=== PATIENT | male | born 1940 | race Caucasian/White ===

== ENCOUNTER 2020-11-18 00:45 | Inpatient (IN) | payer MEDICARE, BC ==
[~2020-11-18] VITALS: Ht 177.8 cm; Wt 128.1 kg
[2020-11-18] VITALS (16 sets, daily range): BP systolic 125–183; BP diastolic 60–87
[2020-11-18] MEDS ORDERED: normal saline 1000ml 1,000 ML IV ONE (02:40)
[2020-11-18] MEDS ORDERED: ondansetron/PF 4mg/2ml inj IV ONE (02:40)
[2020-11-18] MEDS ORDERED: normal saline 1000ML IV soln IVB ONE (02:40)
--- NOTE | 2020-11-18 03:04 | NUR ---
patient had large amount of vomitus, mostly food and bile. Bed changed, patient cleaned, linen change.
[2020-11-18] MEDS: morphine 2 MG/ML inj. syringe IV PRN ×4 (03:09→17:42)
[2020-11-18 03:11] LABS: BASOPHILS % (AUTO) 0.1 % (0-1); EOSINOPHILS % (AUTO) 0.3 % (0-6); HEMATOCRIT 48.9 % (42.0-52.0); HEMOGLOBIN 16.4 g/dl (14.0-17.9); LYMPHOCYTES % (AUTO) 8.4 % (21-51); MEAN CORPUSCULAR HEMOGLOBIN 30.8 PG (27.0-31.0); MEAN CORPUSCULAR HGB CONC 33.5 g/dL (33.0-36.5); MEAN CORPUSCULAR VOLUME 91.9 FL (78-98); MEAN PLATELET VOLUME 6.9 FL (7.4-10.4); MONOCYTES # (AUTO) 0.5 X10'3 (0-0.9); MONOCYTES % (AUTO) 3.9 % (2-12); NEUTROPHILS # (AUTO) 10.7 X10'3 (1.8-7.7); NEUTROPHILS % (AUTO) 87.3 % (42-75); PLATELET COUNT 294 X10'3 (140-440); RED BLOOD COUNT 5.33 X10'6 (4.70-6.10); RED CELL DISTRIBUTION WIDTH 13.3 % (11.5-14.5); WHITE BLOOD COUNT 12.3 X10'3 (4.5-11.0)
[2020-11-18 03:26] LABS: ALANINE AMINOTRANSFERASE 47 U/L (12-78); ALBUMIN 4.2 G/DL (3.4-5.0); ALKALINE PHOSPHATASE 138 IU/L (46-116); ANION GAP 12 (8-16); ASPARTATE AMINO TRANSFERASE 34 U/L (10-37); BILIRUBIN,TOTAL 0.8 MG/DL (0.1-1.0); BLOOD UREA NITROGEN 30 MG/DL (7-18); BUN/CREATININE RATIO 30.3 (5.4-32.0); CALCIUM 9.9 MG/DL (8.5-10.1); CHLORIDE 99 MMOL/L (99-107); CREATININE 0.99 MG/DL (0.60-1.10); GLUCOSE 154 MG/DL (70-104); POTASSIUM 3.5 MMOL/L (3.5-5.1); SODIUM 139 MMOL/L (135-145); TOTAL CARBON DIOXIDE 28.1 MMOL/L (24-32); TOTAL PROTEIN 8.5 G/DL (6.4-8.2); eGFR 73 ML/MIN
[2020-11-18 03:32] LABS: LIPASE 348 U/L (73-393); MAGNESIUM 2.2 MG/DL (1.5-2.4)
[2020-11-18] MEDS ORDERED: iohexol 300mg/ml 100ml inj. ONE (03:34)
[2020-11-18] MEDS ORDERED: acetaminophen 650mg rectal suppository RC PRN (07:20)
[2020-11-18] MEDS ORDERED: ondansetron/PF 4mg/2ml inj IV PRN ×2 (07:20→11:10)
[2020-11-18] MEDS ORDERED: normal saline 1000ml 1,000 ML IV SCH (07:20)
[2020-11-18] MEDS ORDERED: potassium Cl 40MEQ/1/2NS 520ml 520 ML IV PRN ×2 (07:20)
[2020-11-18] MEDS ORDERED: morphine 2 MG/ML inj. syringe IV PRN ×2 (07:20→11:10)
[2020-11-18] MEDS ORDERED: magnesium 2GM in 50ml NS 50 ML IV PRN ×2 (07:20→16:10)
[2020-11-18] MEDS ORDERED: potassium Cl 20 mEq SR tablet PO PRN ×4 (07:20→16:10)
[2020-11-18] MEDS ORDERED: magnesium 4gm in 100ml NS 100 ML IV PRN ×2 (07:20→16:10)
--- NOTE | 2020-11-18 07:41 | NUR ---
saman brandt changed. 700ml brown liquid out
[2020-11-18] MEDS: K and/or MAG REPLACEMENT MC SCH ×2 (08:00→20:00)
--- NOTE | 2020-11-18 08:32 | NUR ---
ANA DAUGHTER [phone] LEONCIO [phone],
[2020-11-18] MEDS ORDERED: meperidine/PF 25mg/ml syringe IV PRN ×3 (11:10)
[2020-11-18] MEDS ORDERED: hydrALAZINE 20mg/ml inj. IV PRN (11:10)
[2020-11-18] MEDS ORDERED: proCHLORperazine 10 MG/2 ml inj IV PRN (11:10)
[2020-11-18] MEDS ORDERED: ringers solution, lacted 1,000 ML IV SCH (11:10)
[2020-11-18] MEDS ORDERED: labetalol 20mg/4ml (5mg/ml) syringe IV PRN (11:10)
[2020-11-18] MEDS ORDERED: acetaminophen 1,000mg/100ml IV 100 ML IV PRN (11:10)
[2020-11-18] MEDS ORDERED: morphine 4 MG/ML inj SYRINge IV PRN ×2 (11:10→16:10)
[2020-11-18] MEDS ORDERED: BUPIVACAINE liposomal/PF 13.3 MG/ML vial IM ONE (11:13)
[2020-11-18] MEDS ORDERED: BUPIVAcaine/PF 2.5mg/ml (0.25%) 10ml vial ONE (11:13)
[2020-11-18] MEDS ORDERED: famotidine/PF 10 mg/ml inj IV ONE (11:24)
[2020-11-18] MEDS ORDERED: NORepinephrine 8 MG in NS 250 ML BAG (32 mcg/ml) IV ONE (11:25)
[2020-11-18] MEDS ORDERED: sevoflurane 250ml liquid IH ONE (11:25)
[2020-11-18] MEDS ORDERED: fentaNYL /PF 50mcg/ml 5ml ampule ONE (11:40)
[2020-11-18] MEDS ORDERED: midazolam 1 mg/ML 2ml injection ONE (11:49)
[2020-11-18] MEDS ORDERED: 0.9 % SODIUM CHLORIDE 10 ML VIAL ONE ×2 (12:22→12:23)
[2020-11-18] MEDS ORDERED: phenylephrine 10mg/ml inj. ONE (12:22)
[2020-11-18] MEDS ORDERED: ePHEDrine 50MG/ML INJ. ONE (12:23)
[2020-11-18] MEDS ORDERED: LIDOcaine 2% (20mg/ml) 5ml vial ONE (12:23)
[2020-11-18] MEDS ORDERED: rocuronium 10mg/ml inj IV ONE (12:23)
[2020-11-18] MEDS ORDERED: propofol inj 20 ML IV ONE ×2 (12:23→12:43)
[2020-11-18] MEDS ORDERED: ceFOXitin 1000 MG inj ONE ×2 (12:26)
[2020-11-18] MEDS ORDERED: ondansetron/PF 4mg/2ml inj ONE (12:43)
[2020-11-18] MEDS ORDERED: dexamethasone sod phosphate 4mg/ml inj. ONE (12:43)
[2020-11-18] MEDS ORDERED: midazolam 1 mg/ML 2ml injection IV ONE (12:50)
[2020-11-18] MEDS ORDERED: fentaNYL/PF 50MCG/1 ML 2ML syringe IV PRN (12:50)
[2020-11-18] MEDS ORDERED: albumin (Human) 5% 250ml 250 ML IV ONE (13:11)
--- NOTE | 2020-11-18 13:25 | NUR ---
Received from OR via BED, accompanied by Anesthesiologist ISSAC and report given by Anesthesiolgist. PT IS SEDATED, HAS 8.O0 ETT. PLACED ON VENTILATOR. CXR DONE FOR TUBE AND LINE PLACEMENT. FENTANYL AND VERSED GTTS HUNG, WRIST RESTRAINTS IN PLACE. SCDS ON, FC PATENT. PT HAS MIDLINE ABD INC WITH ISLAND DSG, CDI. COLOSTOMY BAG LEFT ABD WITH SMALL AMOUNT OF STOOL. PT NODS AND SHAKES HEAD, FOLLOWS COMMANDS. PER DR ARELLANO, PT IS TO REST OVERNIGHT ON THE VENTILATOR. Addendum: 11/18/20 at 2124 by Geovanna Gonsalves RN NGT TO Enzo MOLINA, TO LOW WALL SX. SCANT OUITPUT IN TUBE
[2020-11-18] MEDS: FENTANYL-0.9 % NACL/PF 100 ML IV PRN ×2 (13:42→19:48)
[2020-11-18] MEDS: midazolam 100mg in NS 100ml 100 ML IV PRN (13:42)
[2020-11-18 14:03] LABS: ABG BASE EXCESS 4.5 mmol/L (-2.0-2.0); ABG HCO3 23.1 mmol/L (22.0-26.0); ABG OXYGEN SATURATION 98.9 % (94-97); ABG PCO2 (T) 21.2 mmHg (35.0-48.0); ABG PO2 (T) 120.8 mmHg (75.0-100.0); FCOHb 0.3 % (0.0-3.9); FMetHb 0.4 % (0.0-1.5); FO2Hb 98.2 % (94-97); PEEP 5 cm H2O; RESPIRATORY RATE 12 b/min; TIDAL VOLUME 650 mL
--- NOTE | 2020-11-18 14:30 | NUR ---
FENTANYL AT 100, VERSED AT 3/PT NOT EASILY SEDATED. CHEWING AND BITING ON ETT, REQUESTED BITE BLOCK FROM RT. VSS, HYPERTENSIVE. PT STABLE. REPORT GIVEN TO RECEIVING RN.
[2020-11-18] MEDS ORDERED: sodium phosphate inj. 30 MMOL in dextrose 5%-water 250 ML IV PRN (16:10)
[2020-11-18] MEDS: K, MAG and/or Phos replacement - Verify level? MC SCH (16:10)
[2020-11-18] MEDS ORDERED: magnesium Cl slow-release 64mg tablet PO PRN ×2 (16:10→16:35)
[2020-11-18] MEDS ORDERED: sodium phosphate inj. 15 MMOL in dextrose 5%-water 250 ML IV PRN (16:10)
[2020-11-18] MEDS ORDERED: acetaminophen 325mg tablet PO PRN ×2 (16:10)
[2020-11-18] MEDS ORDERED: albuterol 2.5 MG/3 ML nebule NEB PRN (16:10)
[2020-11-18] MEDS: pantoprazole 40 MG vial IV SCH (16:10)
[2020-11-18] MEDS: normal saline 1000ml 1,000 ML IV SCH (16:10)
[2020-11-18 17:28] LABS: BASOPHILS % (AUTO) 0.1 % (0-1); EOSINOPHILS % (AUTO) 0 % (0-6); HEMATOCRIT 44.6 % (42.0-52.0); HEMOGLOBIN 14.7 g/dl (14.0-17.9); LYMPHOCYTES # (AUTO) 0.5 X10'3 (1.1-4.8); LYMPHOCYTES % (AUTO) 2.6 % (21-51); MEAN CORPUSCULAR HEMOGLOBIN 30.6 PG (27.0-31.0); MEAN CORPUSCULAR VOLUME 92.8 FL (78-98); MEAN PLATELET VOLUME 6.8 FL (7.4-10.4); MONOCYTES # (AUTO) 0.9 X10'3 (0-0.9); MONOCYTES % (AUTO) 4.7 % (2-12); NEUTROPHILS # (AUTO) 17.8 X10'3 (1.8-7.7); NEUTROPHILS % (AUTO) 92.6 % (42-75); PLATELET COUNT 250 X10'3 (140-440); RED CELL DISTRIBUTION WIDTH 13.6 % (11.5-14.5); WHITE BLOOD COUNT 19.2 X10'3 (4.5-11.0)
[2020-11-18 17:41] LABS: PARTIAL THROMBOPLASTIN TIME 23 SECONDS (22-32)
[2020-11-18 17:43] LABS: ALANINE AMINOTRANSFERASE 37 U/L (12-78); ALBUMIN 3.5 G/DL (3.4-5.0); ALKALINE PHOSPHATASE 109 IU/L (46-116); ANION GAP 11 (8-16); ASPARTATE AMINO TRANSFERASE 32 U/L (10-37); BILIRUBIN,TOTAL 0.6 MG/DL (0.1-1.0); BLOOD UREA NITROGEN 24 MG/DL (7-18); BUN/CREATININE RATIO 27.3 (5.4-32.0); CALCIUM 8.4 MG/DL (8.5-10.1); CHLORIDE 107 MMOL/L (99-107); CREATININE 0.88 MG/DL (0.60-1.10); GLUCOSE 163 MG/DL (70-104); MAGNESIUM 2.1 MG/DL (1.5-2.4); PHOSPHORUS 3.4 MG/DL (2.3-4.5); SODIUM 144 MMOL/L (135-145); TOTAL CARBON DIOXIDE 26.3 MMOL/L (24-32); eGFR 84 ML/MIN
[2020-11-18 17:44] LABS: POTASSIUM 3.4 MMOL/L (3.5-5.1)
--- NOTE | 2020-11-18 19:39 | NUR ---
Dr. Savage called about lovenox, he said hold it until tomorrow.
[2020-11-18] MEDS ORDERED: enoxaparin 40mg/0.4ml syringe SQ SCH (20:00)
[2020-11-19] VITALS (24 sets, daily range): BP systolic 109–138; BP diastolic 52–74
[2020-11-19] MEDS: piperacillin/tazo 3.375gm/50ml 50 ML IV SCH ×3 (00:16→16:00)
[2020-11-19 02:41] LABS: PARTIAL THROMBOPLASTIN TIME 23 SECONDS (22-32)
[2020-11-19 02:44] LABS: ALANINE AMINOTRANSFERASE 31 U/L (12-78); ALBUMIN/GLOBULIN RATIO 0.9 (1.1-1.5); ALKALINE PHOSPHATASE 91 IU/L (46-116); ANION GAP 6 (8-16); ASPARTATE AMINO TRANSFERASE 26 U/L (10-37); BILIRUBIN,TOTAL 0.7 MG/DL (0.1-1.0); BLOOD UREA NITROGEN 22 MG/DL (7-18); BUN/CREATININE RATIO 26.5 (5.4-32.0); CHLORIDE 109 MMOL/L (99-107); CREATININE 0.83 MG/DL (0.60-1.10); GLUCOSE 137 MG/DL (70-104); PHOSPHORUS 3.5 MG/DL (2.3-4.5); POTASSIUM 4.2 MMOL/L (3.5-5.1); SODIUM 142 MMOL/L (135-145); TOTAL CARBON DIOXIDE 26.6 MMOL/L (24-32); TOTAL PROTEIN 6.2 G/DL (6.4-8.2); eGFR 90 ML/MIN
[2020-11-19] MEDS ORDERED: FLO0.4C PO (02:52)
[2020-11-19] MEDS ORDERED: BUSP10TA3 PO (02:52)
[2020-11-19] MEDS ORDERED: ARIP5TAB14 PO (02:52)
[2020-11-19] MEDS ORDERED: NORT75CA PO (02:52)
[2020-11-19] MEDS ORDERED: HYDR-3972 PO (02:52)
[2020-11-19] MEDS ORDERED: CITA20TA28 PO (02:52)
[2020-11-19] MEDS ORDERED: LISI40TA13 PO (02:52)
[2020-11-19 02:53] LABS: BASOPHILS % (AUTO) 0.1 % (0-1); EOSINOPHILS % (AUTO) 0 % (0-6); HEMATOCRIT 41.3 % (42.0-52.0); HEMOGLOBIN 13.4 g/dl (14.0-17.9); LYMPHOCYTES % (AUTO) 6.5 % (21-51); MEAN CORPUSCULAR HEMOGLOBIN 30.2 PG (27.0-31.0); MEAN CORPUSCULAR HGB CONC 32.4 g/dL (33.0-36.5); MONOCYTES % (AUTO) 6.5 % (2-12); NEUTROPHILS # (AUTO) 13.9 X10'3 (1.8-7.7); NEUTROPHILS % (AUTO) 86.9 % (42-75); PLATELET COUNT 235 X10'3 (140-440); RED BLOOD COUNT 4.44 X10'6 (4.70-6.10); RED CELL DISTRIBUTION WIDTH 13.7 % (11.5-14.5); WHITE BLOOD COUNT 16.1 X10'3 (4.5-11.0)
[2020-11-19] MEDS: midazolam 100mg in NS 100ml 100 ML IV PRN (03:11)
[2020-11-19] MEDS: FENTANYL-0.9 % NACL/PF 100 ML IV PRN (03:43)
[2020-11-19 03:57] LABS: ABG BASE EXCESS 0.3 mmol/L (-2.0-2.0); ABG HCO3 23.6 mmol/L (22.0-26.0); ABG OXYGEN SATURATION 98.7 % (94-97); ABG PCO2 (T) 34.2 mmHg (35.0-48.0); ABG PO2 (T) 129.7 mmHg (75.0-100.0); FCOHb 0.5 % (0.0-3.9); FMetHb 0.2 % (0.0-1.5); PATIENT TEMPERATURE 37.1; PEEP 5 cm H2O; RESPIRATORY RATE 12 b/min; TIDAL VOLUME 650 mL; TOTAL HEMOGLOBIN 14.1 G/dl (14.0-18.0)
[2020-11-19] MEDS: normal saline 1000ml 1,000 ML IV SCH ×2 (05:30→21:47)
[2020-11-19] MEDS: pantoprazole 40 MG vial IV SCH (07:55)
[2020-11-19] MEDS: K, MAG and/or Phos replacement - Verify level? MC SCH (07:59)
[2020-11-19] MEDS: K and/or MAG REPLACEMENT MC SCH (07:59)
[2020-11-19] MEDS ORDERED: enoxaparin 40mg/0.4ml syringe SUBCUT SCH (08:00)
[2020-11-19] MEDS: mineral oil/petrolatum ophthal oint EACHEYE SCH ×2 (14:00→20:00)
--- NOTE | 2020-11-19 14:24 | NUR ---
Initial: Pt admitted w/ increasing abd pain and distention, CT scan showed SBO per EMR; currently has a colostomy. Pt underwent laparotomy 11/18 and was intubated for the procedure, though was extubated this morning. Pt also had NGT for suctioning but this was also removed today. Per RN, pt currently NPO awaiting MD consult for diet advancement. LBM 11/18. Limited nutrition interventions at this time, Will continue to monitor. Recs: 1. When medically appropriate advance to regular diet 2. Bowel care per rx 3. Weekly wts Addendum: 11/19/20 at [address] Amended: Links added.
[2020-11-19] MEDS: lactobacillus rhamnosus 10,000 MMU CELLS/CAPSULE PO SCH (21:45)
[2020-11-19] MEDS: enoxaparin 40mg/0.4ml syringe SUBCUT SCH (21:45)
[2020-11-19] MEDS: ondansetron/PF 4mg/2ml inj IV PRN (22:04)
--- NOTE | 2020-11-20 01:02 | NUR ---
PATIENT HEART RATE JUMPED TO 130'S;PATIENT ASYMPTOMATIC FOR CHEST PAIN OR DIZZYNESS. STAT EKG PER PROTOCOL. WILL CALL MD [facility] RESULTS. PETTY HOFFMAN Addendum: 11/20/20 at 0146 by Lyric Zambrano RN lr fluid bolus 100 ml ordered, giving tylenol for elevated temp 100.2-will continue to monitor for ekgEKG?VS changes Petty
[2020-11-20 01:13] VITALS: BP 93/69
[2020-11-20] MEDS: ringers solution, lacted 1,000 ML IV SCH ×3 (01:45→03:42)
[2020-11-20] MEDS: mineral oil/petrolatum ophthal oint EACHEYE SCH ×4 (02:00→20:00)
[2020-11-20] MEDS ORDERED: diltiazem 5mg/ml 5ml inj. IV ONE (02:50)
--- NOTE | 2020-11-20 03:52 | NUR ---
BOLUS GIVEN, IV CARDIZEM XONE- PATIENT HR DROPPED TO 80'S, CONVERTED TO SR AT 0339-. PATIENT RHYTHM THEN CONVERTED TO FLUTTER, IRREGULAR AT 0337. CONTINUING TO MONITOR FOR EKG CHANGES. JORDON HOFFMAN
[2020-11-20 06:00] VITALS: BP 97/54
--- NOTE | 2020-11-20 06:05 | NUR ---
Patient in room PCU 3025. I have received report from SALMA HOFFMAN and had the opportunity to ask questions and assume patient care.
[2020-11-20 06:35] LABS: PARTIAL THROMBOPLASTIN TIME 25 SECONDS (22-32)
[2020-11-20] MEDS: normal saline 1000ml 1,000 ML IV SCH ×2 (06:45→08:10)
[2020-11-20 06:52] LABS: ALANINE AMINOTRANSFERASE 31 U/L (12-78); ALBUMIN 2.6 G/DL (3.4-5.0); ALBUMIN/GLOBULIN RATIO 0.8 (1.1-1.5); ALKALINE PHOSPHATASE 80 IU/L (46-116); ANION GAP 8 (8-16); ASPARTATE AMINO TRANSFERASE 30 U/L (10-37); BILIRUBIN,TOTAL 0.6 MG/DL (0.1-1.0); BLOOD UREA NITROGEN 20 MG/DL (7-18); BUN/CREATININE RATIO 24.1 (5.4-32.0); CALCIUM 7.7 MG/DL (8.5-10.1); CHLORIDE 110 MMOL/L (99-107); CREATININE 0.83 MG/DL (0.60-1.10); GLUCOSE 92 MG/DL (70-104); MAGNESIUM 1.9 MG/DL (1.5-2.4); PHOSPHORUS 2.6 MG/DL (2.3-4.5); POTASSIUM 3.8 MMOL/L (3.5-5.1); SODIUM 145 MMOL/L (135-145); TOTAL CARBON DIOXIDE 27.3 MMOL/L (24-32); TOTAL PROTEIN 5.7 G/DL (6.4-8.2); eGFR 90 ML/MIN
[2020-11-20 07:03] LABS: BASOPHILS % (AUTO) 0.3 % (0-1); EOSINOPHILS # (AUTO) 0.3 X10'3 (0-0.9); EOSINOPHILS % (AUTO) 3.2 % (0-6); HEMATOCRIT 36.9 % (42.0-52.0); HEMOGLOBIN 12.4 g/dl (14.0-17.9); LYMPHOCYTES # (AUTO) 1.7 X10'3 (1.1-4.8); LYMPHOCYTES % (AUTO) 16.9 % (21-51); MEAN CORPUSCULAR HEMOGLOBIN 31.2 PG (27.0-31.0); MEAN CORPUSCULAR HGB CONC 33.6 g/dL (33.0-36.5); MEAN CORPUSCULAR VOLUME 92.8 FL (78-98); MEAN PLATELET VOLUME 7.1 FL (7.4-10.4); MONOCYTES # (AUTO) 0.7 X10'3 (0-0.9); MONOCYTES % (AUTO) 6.6 % (2-12); NEUTROPHILS # (AUTO) 7.2 X10'3 (1.8-7.7); PLATELET COUNT 182 X10'3 (140-440); RED BLOOD COUNT 3.97 X10'6 (4.70-6.10); RED CELL DISTRIBUTION WIDTH 13.6 % (11.5-14.5); WHITE BLOOD COUNT 9.9 X10'3 (4.5-11.0)
[2020-11-20] MEDS: pantoprazole 40 MG vial IV SCH (07:47)
[2020-11-20] MEDS: lactobacillus rhamnosus 10,000 MMU CELLS/CAPSULE PO SCH ×2 (07:47→20:55)
[2020-11-20] MEDS: piperacillin/tazo 3.375gm/50ml 50 ML IV SCH ×3 (07:49→15:11)
[2020-11-20] MEDS: K, MAG and/or Phos replacement - Verify level? MC SCH (08:03)
[2020-11-20 11:00] VITALS: BP 120/58
--- NOTE | 2020-11-20 12:57 | NUR ---
NG TUBE REMOVED PER MD ORDER. PATIENT SMOOTH. WELL. PLACED ON CLEAR LIQUID DIET.
[2020-11-20 15:00] VITALS: BP 126/64
--- NOTE | 2020-11-20 18:23 | NUR ---
Problems reprioritized. Patient report given, questions answered & plan of care reviewed with Lurdes HOFFMAN.
[2020-11-20 19:00] VITALS: BP 128/70
[2020-11-20] MEDS: enoxaparin 40mg/0.4ml syringe SUBCUT SCH (20:55)
[2020-11-20] MEDS: morphine 2 MG/ML inj. syringe IV PRN (22:59)
[2020-11-20 23:00] VITALS: BP 127/62
[2020-11-21] MEDS: mineral oil/petrolatum ophthal oint EACHEYE SCH ×3 (01:17→14:00)
[2020-11-21 03:00] VITALS: BP 123/58
[2020-11-21 06:00] VITALS: BP 108/53
--- NOTE | 2020-11-21 06:21 | NUR ---
Patient in room PCU 3025. I have received report from Lurdes HOFFMAN and had the opportunity to ask questions and assume patient care.
[2020-11-21 06:25] LABS: BASOPHILS % (AUTO) 0.2 % (0-1); EOSINOPHILS # (AUTO) 0.3 X10'3 (0-0.9); EOSINOPHILS % (AUTO) 4.2 % (0-6); HEMATOCRIT 35.3 % (42.0-52.0); HEMOGLOBIN 11.7 g/dl (14.0-17.9); LYMPHOCYTES # (AUTO) 1.5 X10'3 (1.1-4.8); LYMPHOCYTES % (AUTO) 18.7 % (21-51); MEAN CORPUSCULAR HGB CONC 33.2 g/dL (33.0-36.5); MEAN CORPUSCULAR VOLUME 93.5 FL (78-98); MONOCYTES # (AUTO) 0.6 X10'3 (0-0.9); MONOCYTES % (AUTO) 7.6 % (2-12); NEUTROPHILS # (AUTO) 5.5 X10'3 (1.8-7.7); NEUTROPHILS % (AUTO) 69.3 % (42-75); PLATELET COUNT 155 X10'3 (140-440); RED BLOOD COUNT 3.78 X10'6 (4.70-6.10); RED CELL DISTRIBUTION WIDTH 13.2 % (11.5-14.5); WHITE BLOOD COUNT 7.9 X10'3 (4.5-11.0)
[2020-11-21 06:35] LABS: PARTIAL THROMBOPLASTIN TIME 25 SECONDS (22-32)
[2020-11-21 06:48] LABS: ALANINE AMINOTRANSFERASE 38 U/L (12-78); ALBUMIN 2.7 G/DL (3.4-5.0); ALBUMIN/GLOBULIN RATIO 0.9 (1.1-1.5); ALKALINE PHOSPHATASE 77 IU/L (46-116); ANION GAP 5 (8-16); ASPARTATE AMINO TRANSFERASE 32 U/L (10-37); BILIRUBIN,TOTAL 0.6 MG/DL (0.1-1.0); BLOOD UREA NITROGEN 14 MG/DL (7-18); BUN/CREATININE RATIO 17.3 (5.4-32.0); CALCIUM 7.7 MG/DL (8.5-10.1); CHLORIDE 108 MMOL/L (99-107); CREATININE 0.81 MG/DL (0.60-1.10); GLUCOSE 108 MG/DL (70-104); MAGNESIUM 1.8 MG/DL (1.5-2.4); PHOSPHORUS 2.1 MG/DL (2.3-4.5); POTASSIUM 3.3 MMOL/L (3.5-5.1); SODIUM 142 MMOL/L (135-145); TOTAL CARBON DIOXIDE 28.8 MMOL/L (24-32); TOTAL PROTEIN 5.7 G/DL (6.4-8.2); eGFR > 90 ML/MIN
[2020-11-21] MEDS: K, MAG and/or Phos replacement - Verify level? MC SCH (08:00)
[2020-11-21] MEDS: piperacillin/tazo 3.375gm/50ml 50 ML IV SCH ×3 (08:37→16:24)
[2020-11-21] MEDS: lactobacillus rhamnosus 10,000 MMU CELLS/CAPSULE PO SCH ×2 (08:37→20:19)
[2020-11-21] MEDS: Neutra Phos packet PO PRN ×2 (08:38→22:29)
[2020-11-21] MEDS: pantoprazole 40 MG vial IV SCH (08:38)
[2020-11-21] MEDS: morphine 2 MG/ML inj. syringe IV PRN ×3 (08:56→20:21)
[2020-11-21] MEDS ORDERED: magnesium Cl slow-release 64mg tablet PO PRN (10:20)
[2020-11-21] MEDS ORDERED: potassium Cl 20 mEq SR tablet PO PRN (10:20)
[2020-11-21] MEDS: normal saline 1000ml 1,000 ML IV SCH (10:50)
[2020-11-21 11:00] VITALS: BP 126/74
[2020-11-21] MEDS: potassium Cl 20 mEq SR tablet PO PRN ×2 (11:33→22:29)
[2020-11-21] MEDS: lisinopril 20mg tablet PO SCH (11:33)
[2020-11-21 15:00] VITALS: BP 115/58
[2020-11-21 18:00] VITALS: BP 124/66
--- NOTE | 2020-11-21 18:11 | NUR ---
Problems reprioritized. Patient report given, questions answered & plan of care reviewed with Judit HOFFMAN.
[2020-11-21] MEDS: enoxaparin 40mg/0.4ml syringe SUBCUT SCH (20:19)
[2020-11-22] MEDS: piperacillin/tazo 3.375gm/50ml 50 ML IV SCH ×4 (00:48→23:12)
[2020-11-22] MEDS: normal saline 1000ml 1,000 ML IV SCH ×2 (00:49→13:30)
[2020-11-22 01:25] VITALS: BP 124/66
[2020-11-22] MEDS: potassium Cl 20 mEq SR tablet PO PRN (02:54)
[2020-11-22] MEDS: Neutra Phos packet PO PRN (02:54)
[2020-11-22] MEDS: morphine 2 MG/ML inj. syringe IV PRN ×3 (02:55→20:15)
[2020-11-22 06:00] VITALS: BP 124/72
[2020-11-22 06:04] LABS: BASOPHILS % (AUTO) 0.3 % (0-1); EOSINOPHILS # (AUTO) 0.3 X10'3 (0-0.9); EOSINOPHILS % (AUTO) 4.5 % (0-6); HEMATOCRIT 35.1 % (42.0-52.0); HEMOGLOBIN 11.6 g/dl (14.0-17.9); LYMPHOCYTES # (AUTO) 1.3 X10'3 (1.1-4.8); LYMPHOCYTES % (AUTO) 18.5 % (21-51); MEAN CORPUSCULAR HEMOGLOBIN 30.7 PG (27.0-31.0); MEAN CORPUSCULAR HGB CONC 33.1 g/dL (33.0-36.5); MEAN CORPUSCULAR VOLUME 92.5 FL (78-98); MEAN PLATELET VOLUME 7.2 FL (7.4-10.4); MONOCYTES # (AUTO) 0.6 X10'3 (0-0.9); MONOCYTES % (AUTO) 8.1 % (2-12); NEUTROPHILS # (AUTO) 4.9 X10'3 (1.8-7.7); NEUTROPHILS % (AUTO) 68.6 % (42-75); PLATELET COUNT 164 X10'3 (140-440); RED CELL DISTRIBUTION WIDTH 13.4 % (11.5-14.5); WHITE BLOOD COUNT 7.2 X10'3 (4.5-11.0)
[2020-11-22 06:07] LABS: PARTIAL THROMBOPLASTIN TIME 25 SECONDS (22-32)
[2020-11-22 06:19] LABS: ALANINE AMINOTRANSFERASE 55 U/L (12-78); ALBUMIN 2.7 G/DL (3.4-5.0); ALBUMIN/GLOBULIN RATIO 0.9 (1.1-1.5); ALKALINE PHOSPHATASE 83 IU/L (46-116); ANION GAP 8 (8-16); ASPARTATE AMINO TRANSFERASE 37 U/L (10-37); BILIRUBIN,TOTAL 0.8 MG/DL (0.1-1.0); BLOOD UREA NITROGEN 8 MG/DL (7-18); BUN/CREATININE RATIO 11.8 (5.4-32.0); CALCIUM 7.7 MG/DL (8.5-10.1); CHLORIDE 107 MMOL/L (99-107); CREATININE 0.68 MG/DL (0.60-1.10); GLUCOSE 122 MG/DL (70-104); MAGNESIUM 1.8 MG/DL (1.5-2.4); PHOSPHORUS 2.9 MG/DL (2.3-4.5); POTASSIUM 3.7 MMOL/L (3.5-5.1); SODIUM 141 MMOL/L (135-145); TOTAL CARBON DIOXIDE 26.3 MMOL/L (24-32); TOTAL PROTEIN 5.8 G/DL (6.4-8.2); eGFR > 90 ML/MIN
--- NOTE | 2020-11-22 06:34 | NUR ---
Patient in room PCU 3025. I have received report from COURTNEY HOFFMAN and had the opportunity to ask questions and assume patient care.
[2020-11-22] MEDS: lactobacillus rhamnosus 10,000 MMU CELLS/CAPSULE PO SCH ×2 (07:56→19:51)
[2020-11-22] MEDS: tamsulosin 0.4mg capsule PO SCH (07:56)
[2020-11-22] MEDS: pantoprazole 40 MG vial IV SCH (07:56)
[2020-11-22] MEDS: lisinopril 20mg tablet PO SCH (07:59)
[2020-11-22] MEDS: K, MAG and/or Phos replacement - Verify level? MC SCH (08:00)
[2020-11-22 10:00] VITALS: BP 123/68
--- NOTE | 2020-11-22 12:02 | NUR ---
Reassessment: Pt currently on Clear liquid diet since 11/20, consuming mostly 100% of meals. Per MD note, pt has still not passed gas and waiting for bowel function to return before advancing diet. [facility] 11/18. Limited nutrition interventions at this time, Will continue to monitor. Recs: 1. When medically appropriate advance to regular diet 2. Bowel care per rx 3. Weekly wts Addendum: 11/22/20 at [address] Amended: Links added.
[2020-11-22 15:00] VITALS: BP 140/77
--- NOTE | 2020-11-22 17:00 | NUR ---
pts ostomy was visible dirty at the disc site. i changed the disc and the colostomy bag. cleaned around the stomas which was normal and beefy red. pt tolerated well.
[2020-11-22 18:00] VITALS: BP 150/81
--- NOTE | 2020-11-22 18:29 | NUR ---
Problems reprioritized. Patient report given, questions answered & plan of care reviewed with Suyapa childers.
[2020-11-22] MEDS: enoxaparin 40mg/0.4ml syringe SUBCUT SCH (19:51)
[2020-11-22 22:00] VITALS: BP 149/88
[2020-11-22] MEDS: ondansetron/PF 4mg/2ml inj IV PRN (22:07)
[2020-11-23] VITALS (10 sets, daily range): BP systolic 110–190; BP diastolic 59–107
[2020-11-23] MEDS: morphine 2 MG/ML inj. syringe IV PRN ×4 (00:20→22:14)
[2020-11-23] MEDS ORDERED: ondansetron/PF 4mg/2ml inj IV PRN (00:35)
[2020-11-23] MEDS ORDERED: diphenhydrAMINE 50 mg/ml inj IV PRN ×2 (00:35→01:00)
--- NOTE | 2020-11-23 01:00 | NUR ---
Pt is having N/V (brown color). Bowel sounds are present in all 4Q, abd is large, but not firm and colostomy bag is empty. is notified, and Dr. Sal ordered that if Zofran 8 mg q4h / Ativan 0.5 mg q2h / Benadryl 25 mg IV don't work with the pt, insert NG tube.
[2020-11-23] MEDS: LORazepam 2 mg/ml vial IV PRN ×2 (01:12→12:45)
[2020-11-23] MEDS: ondansetron/PF 4mg/2ml inj IV PRN ×4 (01:17→18:56)
[2020-11-23] MEDS: hydrALAZINE 20mg/ml inj. IV PRN ×2 (02:28→22:13)
[2020-11-23 06:00] LABS: BASOPHILS % (AUTO) 0.3 % (0-1); EOSINOPHILS % (AUTO) 0.3 % (0-6); HEMATOCRIT 42.7 % (42.0-52.0); HEMOGLOBIN 14.6 g/dl (14.0-17.9); LYMPHOCYTES # (AUTO) 0.8 X10'3 (1.1-4.8); LYMPHOCYTES % (AUTO) 8.3 % (21-51); MEAN CORPUSCULAR HGB CONC 34.2 g/dL (33.0-36.5); MEAN CORPUSCULAR VOLUME 90.5 FL (78-98); MEAN PLATELET VOLUME 6.9 FL (7.4-10.4); MONOCYTES # (AUTO) 0.5 X10'3 (0-0.9); MONOCYTES % (AUTO) 4.6 % (2-12); NEUTROPHILS # (AUTO) 8.6 X10'3 (1.8-7.7); NEUTROPHILS % (AUTO) 86.5 % (42-75); PLATELET COUNT 221 X10'3 (140-440); RED BLOOD COUNT 4.72 X10'6 (4.70-6.10); RED CELL DISTRIBUTION WIDTH 13.1 % (11.5-14.5); WHITE BLOOD COUNT 9.9 X10'3 (4.5-11.0)
[2020-11-23 06:13] LABS: PARTIAL THROMBOPLASTIN TIME 24 SECONDS (22-32)
--- NOTE | 2020-11-23 06:20 | NUR ---
Problems reprioritized. Patient report given, questions answered & plan of care reviewed with YASMIN Pierre.
--- NOTE | 2020-11-23 06:28 | NUR ---
Patient in room PCU 3025. I have received report from tamie childers and had the opportunity to ask questions and assume patient care.
[2020-11-23 06:34] LABS: ALANINE AMINOTRANSFERASE 69 U/L (12-78); ALBUMIN 3.3 G/DL (3.4-5.0); ALBUMIN/GLOBULIN RATIO 0.8 (1.1-1.5); ALKALINE PHOSPHATASE 101 IU/L (46-116); ANION GAP 11 (8-16); ASPARTATE AMINO TRANSFERASE 40 U/L (10-37); BILIRUBIN,TOTAL 0.8 MG/DL (0.1-1.0); BLOOD UREA NITROGEN 8 MG/DL (7-18); BUN/CREATININE RATIO 10.5 (5.4-32.0); CALCIUM 8.5 MG/DL (8.5-10.1); CHLORIDE 104 MMOL/L (99-107); CREATININE 0.76 MG/DL (0.60-1.10); GLUCOSE 121 MG/DL (70-104); MAGNESIUM 2.1 MG/DL (1.5-2.4); PHOSPHORUS 3.2 MG/DL (2.3-4.5); POTASSIUM 3.3 MMOL/L (3.5-5.1); SODIUM 140 MMOL/L (135-145); TOTAL CARBON DIOXIDE 25.5 MMOL/L (24-32); TOTAL PROTEIN 7.3 G/DL (6.4-8.2); eGFR > 90 ML/MIN
[2020-11-23] MEDS: lactobacillus rhamnosus 10,000 MMU CELLS/CAPSULE PO SCH ×2 (07:46→19:15)
[2020-11-23] MEDS: tamsulosin 0.4mg capsule PO SCH (07:46)
[2020-11-23] MEDS: piperacillin/tazo 3.375gm/50ml 50 ML IV SCH ×2 (07:47→16:05)
[2020-11-23] MEDS: pantoprazole 40 MG vial IV SCH (07:47)
[2020-11-23] MEDS: lisinopril 20mg tablet PO SCH (07:47)
[2020-11-23] MEDS: K, MAG and/or Phos replacement - Verify level? MC SCH (08:00)
--- NOTE | 2020-11-23 09:03 | NUR ---
DR gill came to see pt expressed how pt was vomiting last night and part of this am. pt hasnt vomited in a couple hours. pt is passing gas through ostomy. Dr gill said that good and we will keep an eye for possible NG but not right now.
[2020-11-23] MEDS: potassium Cl 20 mEq SR tablet PO PRN ×3 (09:09→17:13)
--- NOTE | 2020-11-23 11:46 | NUR ---
Page Sent PAGER ID: [phone] MESSAGE: [phone] andreas, can I get something else for pts nausea? he is still nausea and some vomiting
[2020-11-23] MEDS ORDERED: proCHLORperazine 10 MG/2 ml inj IV PRN (12:00)
--- NOTE | 2020-11-23 12:02 | NUR ---
Page Sent PAGER ID: [phone] MESSAGE: [phone] Maria A, pt home meds are not on the emar. he has some antianxiety, antidepressant medication that he hasn't taken since 11/18. family is concerned. can you please review these medications. karan [phone]
[2020-11-23] MEDS: aripiprazole 5mg tablet PO SCH (13:09)
--- NOTE | 2020-11-23 14:34 | NUR ---
TALKED TO DR SIMENTAL, SHE STATED TO TRY COMPAZINE FOR PTS VOMITING AND IF NOT CONTACT KATHERINE ABOUT THE PTS CONDITION. WILL LET HIM KNOW
--- NOTE | 2020-11-23 15:00 | NUR ---
aspen gill stated if pt vomits anymore to put NG in. pt has not vomited yet. if not i will pass the info on to production shift supervisor to possible put in NG.
--- NOTE | 2020-11-23 15:14 | NUR ---
Page Sent PAGER ID: [phone] MESSAGE: [id number], PT HAS HAD TWO BLOOD PRESSURE IN A ROW THAT ARE HIGH. BP 168/100 HR 89 AND BP 188/107 HR 91
[2020-11-23] MEDS ORDERED: hydrALAZINE 20mg/ml inj. IV ONE (15:55)
--- NOTE | 2020-11-23 16:12 | NUR ---
dr. teran ordered hydralazine 5mg once for pt bps of 169/100 and 188/107. hydralazine given.
--- NOTE | 2020-11-23 18:19 | NUR ---
Problems reprioritized. Patient report given, questions answered & plan of care reviewed with Suyapa childers .
[2020-11-23] MEDS: busPIRone 5mg tablet PO SCH (19:16)
[2020-11-23] MEDS: enoxaparin 40mg/0.4ml syringe SUBCUT SCH (19:17)
[2020-11-23] MEDS: citalopram 20mg tablet PO SCH (20:36)
[2020-11-23] MEDS: nortriptyline 25mg capsule PO SCH (20:37)
[2020-11-23] MEDS ORDERED: aspirin 325mg tablet PO ONE (21:10)
--- NOTE | 2020-11-23 21:35 | NUR ---
Rapid Responce Team called d/t pt's rapid heart rate and not looking good. He was awake , alert, and he denied having chest pain nor palpitation. He c/o back and abd. pain. Prior to the event, NG tube 18 Fr was placed on him for abdominal distention which he tolerated well. VS = 158/93 HR = 119., O2 at = 95% @ 3 LPM. Another 12 Lead EKG was performed tonight and was shown to Dr. Desai who came shortly in the room. As of 2229, there's 2 L of gastric output suctioned. Dr. Sal is updated/notified of pt's condition and lab results. Additional notes : Prior to the event, Pt's EKG was shown to Dr. Sal (and he consulted Dr. Desai ).
[2020-11-23 22:40] LABS: TROPONIN I < 0.04 NG/ML (0.0-0.05)
[2020-11-23 22:45] LABS: ALBUMIN 3.3 G/DL (3.4-5.0); ANION GAP 19 (8-16); BLOOD UREA NITROGEN 15 MG/DL (7-18); BUN/CREATININE RATIO 18.8 (5.4-32.0); CALCIUM 8.4 MG/DL (8.5-10.1); CHLORIDE 100 MMOL/L (99-107); GLUCOSE 175 MG/DL (70-104); POTASSIUM 3.1 MMOL/L (3.5-5.1); SODIUM 138 MMOL/L (135-145); TOTAL CARBON DIOXIDE 19.2 MMOL/L (24-32); eGFR > 90 ML/MIN
[2020-11-23] MEDS: potassium Cl 20mEq in NS 1,000 ML IV SCH (22:53)
[2020-11-24] MEDS: piperacillin/tazo 3.375gm/50ml 50 ML IV SCH ×3 (00:06→16:51)
[2020-11-24 03:36] LABS: PARTIAL THROMBOPLASTIN TIME 23 SECONDS (22-32)
[2020-11-24 03:40] LABS: MAGNESIUM 2.1 MG/DL (1.5-2.4); POTASSIUM 3.3 MMOL/L (3.5-5.1)
--- NOTE | 2020-11-24 03:57 | NUR ---
Paged Dr. Sal. PAGER ID: [phone] MESSAGE: FYI : Pt in 3025A Maria ACarmen 80 M Dx : SBO has 3rd & 6th hr Troponin of 0.06 & 0.07, respectively ( compare to <0.04 at 0 hr). Current K+ 3.1 & Mg 2.1. Pt is receiving NS w/ 20 mEq K+ @ 100 ml/hr. Suyaap nieto [id number].
[2020-11-24] MEDS: potassium Cl 20mEq in NS 1,000 ML IV SCH ×5 (04:56→23:25)
--- NOTE | 2020-11-24 06:21 | NUR ---
Problems reprioritized. Patient report given, questions answered & plan of care reviewed with YASMIN Obrien.
--- NOTE | 2020-11-24 06:31 | NUR ---
Patient in room PCU 3025. I have received report from YASMIN Dale and had the opportunity to ask questions and assume patient care.
[2020-11-24 07:00] VITALS: BP 124/61
[2020-11-24] MEDS: K, MAG and/or Phos replacement - Verify level? MC SCH (08:00)
[2020-11-24] MEDS: aripiprazole 5mg tablet PO SCH (08:56)
[2020-11-24] MEDS: tamsulosin 0.4mg capsule PO SCH (08:56)
[2020-11-24] MEDS: busPIRone 5mg tablet PO SCH ×2 (08:56→19:49)
[2020-11-24] MEDS: lactobacillus rhamnosus 10,000 MMU CELLS/CAPSULE PO SCH ×2 (08:57→19:49)
[2020-11-24] MEDS: lisinopril 20mg tablet PO SCH (08:58)
[2020-11-24] MEDS: pantoprazole 40 MG vial IV SCH (08:58)
[2020-11-24 09:44] LABS: BASOPHILS % (AUTO) 0.1 % (0-1); EOSINOPHILS # (AUTO) 0.1 X10'3 (0-0.9); EOSINOPHILS % (AUTO) 0.4 % (0-6); HEMATOCRIT 43.7 % (42.0-52.0); HEMOGLOBIN 14.2 g/dl (14.0-17.9); LYMPHOCYTES # (AUTO) 1.4 X10'3 (1.1-4.8); LYMPHOCYTES % (AUTO) 8.5 % (21-51); MEAN CORPUSCULAR HEMOGLOBIN 30.4 PG (27.0-31.0); MEAN CORPUSCULAR HGB CONC 32.5 g/dL (33.0-36.5); MEAN CORPUSCULAR VOLUME 93.4 FL (78-98); MEAN PLATELET VOLUME 6.8 FL (7.4-10.4); MONOCYTES # (AUTO) 1.1 X10'3 (0-0.9); MONOCYTES % (AUTO) 6.9 % (2-12); NEUTROPHILS # (AUTO) 13.3 X10'3 (1.8-7.7); NEUTROPHILS % (AUTO) 84.1 % (42-75); PLATELET COUNT 268 X10'3 (140-440); RED BLOOD COUNT 4.68 X10'6 (4.70-6.10); RED CELL DISTRIBUTION WIDTH 13.4 % (11.5-14.5); WHITE BLOOD COUNT 15.9 X10'3 (4.5-11.0)
[2020-11-24 09:57] LABS: ALANINE AMINOTRANSFERASE 63 U/L (12-78); ALBUMIN 2.8 G/DL (3.4-5.0); ALBUMIN/GLOBULIN RATIO 0.7 (1.1-1.5); ALKALINE PHOSPHATASE 91 IU/L (46-116); ANION GAP 10 (8-16); ASPARTATE AMINO TRANSFERASE 34 U/L (10-37); BILIRUBIN,TOTAL 0.7 MG/DL (0.1-1.0); BLOOD UREA NITROGEN 16 MG/DL (7-18); BUN/CREATININE RATIO 19.3 (5.4-32.0); CHLORIDE 105 MMOL/L (99-107); CREATININE 0.83 MG/DL (0.60-1.10); GLUCOSE 127 MG/DL (70-104); POTASSIUM 3.4 MMOL/L (3.5-5.1); SODIUM 144 MMOL/L (135-145); TOTAL CARBON DIOXIDE 29.5 MMOL/L (24-32); TOTAL PROTEIN 6.6 G/DL (6.4-8.2); eGFR 90 ML/MIN
[2020-11-24 09:58] LABS: CALCIUM 8.7 MG/DL (8.5-10.1)
[2020-11-24 18:00] VITALS: BP 147/73
--- NOTE | 2020-11-24 18:00 | NUR ---
NT TUBE REMOVED BEFORE I ARRIVED ON THER FLOOR Addendum: 11/25/20 at 0209 by Cortney Pimentel RN Amended: Links added.
--- NOTE | 2020-11-24 18:00 | NUR ---
NG OUT PRIOR TO ARRIVAL TO THE FLOOR. Addendum: 11/25/20 at 0211 by Cortney Pimentel RN Amended: Links added.
--- NOTE | 2020-11-24 18:45 | NUR ---
Patient in room U 3025. I have received report from JUAN HOFFMAN and had the opportunity to ask questions and assume patient care. Addendum: 11/24/20 at 1851 by Cortney Pimentel RN Amended: Links added.
--- NOTE | 2020-11-24 18:45 | NUR ---
Problems reprioritized. Patient report given, questions answered & plan of care reviewed with Cortney HOFFMAN.
[2020-11-24] MEDS: nortriptyline 25mg capsule PO SCH (19:50)
[2020-11-24] MEDS: citalopram 20mg tablet PO SCH (19:50)
[2020-11-24] MEDS: enoxaparin 40mg/0.4ml syringe SUBCUT SCH (19:51)
[2020-11-24 22:00] VITALS: BP 143/64
[2020-11-25] MEDS: piperacillin/tazo 3.375gm/50ml 50 ML IV SCH ×2 (01:04→09:10)
[2020-11-25 02:00] VITALS: BP 132/68
[2020-11-25] MEDS: potassium Cl 20mEq in NS 1,000 ML IV SCH ×4 (04:31→19:25)
[2020-11-25 06:00] VITALS: BP 122/55
--- NOTE | 2020-11-25 06:39 | NUR ---
Patient in room PCU 3025. I have received report from YASMIN Barr and had the opportunity to ask questions and assume patient care.
--- NOTE | 2020-11-25 06:40 | NUR ---
Problems reprioritized. Patient report given, questions answered & plan of care reviewed with JUAN HOFFMAN. Addendum: 11/25/20 at 0640 by Cortney Pimentel RN Amended: Links added.
[2020-11-25 06:42] LABS: MAGNESIUM 2.2 MG/DL (1.5-2.4); PARTIAL THROMBOPLASTIN TIME 24 SECONDS (22-32); PHOSPHORUS 2.3 MG/DL (2.3-4.5); POTASSIUM 3.4 MMOL/L (3.5-5.1)
[2020-11-25] MEDS: K, MAG and/or Phos replacement - Verify level? MC SCH (08:00)
[2020-11-25] MEDS: tamsulosin 0.4mg capsule PO SCH (09:10)
[2020-11-25] MEDS: lactobacillus rhamnosus 10,000 MMU CELLS/CAPSULE PO SCH ×2 (09:10→20:29)
[2020-11-25] MEDS: aripiprazole 5mg tablet PO SCH (09:10)
[2020-11-25] MEDS: busPIRone 5mg tablet PO SCH ×2 (09:11→20:28)
[2020-11-25] MEDS: lisinopril 20mg tablet PO SCH (09:12)
[2020-11-25] MEDS: pantoprazole 40 MG vial IV SCH (09:13)
--- NOTE | 2020-11-25 10:38 | NUR ---
Patient w/serum K+ of 3.3. Per , d/t ongoing K+ infusion, we will not admin protocol at this time. Recheck in a.m.
[2020-11-25 11:00] VITALS: BP 128/64
--- NOTE | 2020-11-25 12:24 | NUR ---
Reassessment: Pt previously with an NG tube, removed on 11/24. Diet has been advanced to full liquids, pending first meal since diet advancement. LBM 11/24, documented as small. Routine MoM BID added to med list today. Will continue to follow closely and monitor need for nutrition intervention. Recs: 1. Advance to regular diet as medically indicated 2. Monitor need for ONS 3. Bowel care per rx 4. Weekly scaled wts Addendum: 11/25/20 at [address] Amended: Links added.
[2020-11-25 15:00] VITALS: BP 117/57
[2020-11-25 18:00] VITALS: BP 177/55
[2020-11-25] MEDS: magnesium hydroxide 30ml (MOM) UD suspension PO SCH (20:27)
[2020-11-25] MEDS: nortriptyline 25mg capsule PO SCH (20:28)
[2020-11-25] MEDS: citalopram 20mg tablet PO SCH (20:28)
[2020-11-25] MEDS: enoxaparin 40mg/0.4ml syringe SUBCUT SCH (20:29)
[2020-11-25 22:00] VITALS: BP 127/61
[2020-11-26] MEDS: potassium Cl 20mEq in NS 1,000 ML IV SCH ×5 (00:25→19:48)
[2020-11-26 02:00] VITALS: BP 138/66
--- NOTE | 2020-11-26 06:32 | NUR ---
Problems reprioritized. Patient report given, questions answered & plan of care reviewed with YASMIN Gale.
[2020-11-26 06:34] LABS: BASOPHILS % (AUTO) 0.2 % (0-1); EOSINOPHILS # (AUTO) 0.4 X10'3 (0-0.9); EOSINOPHILS % (AUTO) 3.4 % (0-6); HEMATOCRIT 34.7 % (42.0-52.0); HEMOGLOBIN 11.5 g/dl (14.0-17.9); LYMPHOCYTES # (AUTO) 1.4 X10'3 (1.1-4.8); LYMPHOCYTES % (AUTO) 11.4 % (21-51); MEAN CORPUSCULAR HEMOGLOBIN 30.7 PG (27.0-31.0); MEAN CORPUSCULAR HGB CONC 33.3 g/dL (33.0-36.5); MEAN CORPUSCULAR VOLUME 92.3 FL (78-98); MEAN PLATELET VOLUME 6.6 FL (7.4-10.4); MONOCYTES # (AUTO) 0.9 X10'3 (0-0.9); MONOCYTES % (AUTO) 7.2 % (2-12); NEUTROPHILS # (AUTO) 9.2 X10'3 (1.8-7.7); NEUTROPHILS % (AUTO) 77.8 % (42-75); PLATELET COUNT 220 X10'3 (140-440); RED BLOOD COUNT 3.76 X10'6 (4.70-6.10); RED CELL DISTRIBUTION WIDTH 13.5 % (11.5-14.5); WHITE BLOOD COUNT 11.8 X10'3 (4.5-11.0)
[2020-11-26 06:37] LABS: PARTIAL THROMBOPLASTIN TIME 24 SECONDS (22-32)
--- NOTE | 2020-11-26 06:42 | NUR ---
Patient in room PCU 3025. I have received report from Camille HOFFMAN and had the opportunity to ask questions and assume patient care. Patient resting in bed in no acute distress
[2020-11-26 06:51] LABS: PHOSPHORUS 1.8 MG/DL (2.3-4.5)
[2020-11-26 07:00] VITALS: BP 141/80
[2020-11-26 08:00] LABS: ALANINE AMINOTRANSFERASE 57 U/L (12-78); ALBUMIN 2.5 G/DL (3.4-5.0); ALBUMIN/GLOBULIN RATIO 0.8 (1.1-1.5); ALKALINE PHOSPHATASE 81 IU/L (46-116); ANION GAP 9 (8-16); ASPARTATE AMINO TRANSFERASE 31 U/L (10-37); BILIRUBIN,TOTAL 0.5 MG/DL (0.1-1.0); BLOOD UREA NITROGEN 10 MG/DL (7-18); BUN/CREATININE RATIO 15.9 (5.4-32.0); CALCIUM 7.8 MG/DL (8.5-10.1); CHLORIDE 109 MMOL/L (99-107); CREATININE 0.63 MG/DL (0.60-1.10); GLUCOSE 89 MG/DL (70-104); POTASSIUM 3.6 MMOL/L (3.5-5.1); SODIUM 143 MMOL/L (135-145); TOTAL CARBON DIOXIDE 25.1 MMOL/L (24-32); TOTAL PROTEIN 5.8 G/DL (6.4-8.2); eGFR > 90 ML/MIN
[2020-11-26] MEDS: K, MAG and/or Phos replacement - Verify level? MC SCH (08:00)
[2020-11-26] MEDS: busPIRone 5mg tablet PO SCH ×2 (08:57→19:56)
[2020-11-26] MEDS: pantoprazole 40 MG vial IV SCH (08:57)
[2020-11-26] MEDS: lactobacillus rhamnosus 10,000 MMU CELLS/CAPSULE PO SCH ×2 (08:57→19:54)
[2020-11-26] MEDS: aripiprazole 5mg tablet PO SCH (08:57)
[2020-11-26] MEDS: magnesium hydroxide 30ml (MOM) UD suspension PO SCH ×2 (08:58→19:51)
[2020-11-26] MEDS: Neutra Phos packet PO PRN ×3 (08:58→21:07)
[2020-11-26] MEDS: tamsulosin 0.4mg capsule PO SCH (08:58)
[2020-11-26] MEDS: lisinopril 20mg tablet PO SCH (08:58)
[2020-11-26] MEDS: ondansetron/PF 4mg/2ml inj IV PRN ×2 (09:13→14:49)
[2020-11-26 11:00] VITALS: BP 159/79
[2020-11-26] MEDS: morphine 2 MG/ML inj. syringe IV PRN (14:48)
[2020-11-26] MEDS: hydrALAZINE 20mg/ml inj. IV PRN (14:50)
[2020-11-26 15:00] VITALS: BP 166/76
--- NOTE | 2020-11-26 16:56 | NUR ---
Patient not tolerating reg diet . Diet reverted to Full liquids
[2020-11-26 18:00] VITALS: BP 131/71
--- NOTE | 2020-11-26 18:28 | NUR ---
Problems reprioritized. Patient report given, questions answered & plan of care reviewed with Cortney HOFFMAN
--- NOTE | 2020-11-26 18:36 | NUR ---
Patient in room U 3025. I have received report from KALEN HOFFMAN and had the opportunity to ask questions and assume patient care. Addendum: 11/26/20 at 1837 by Cortney Pimentel RN Amended: Links added.
[2020-11-26] MEDS: nortriptyline 25mg capsule PO SCH (19:54)
[2020-11-26] MEDS: citalopram 20mg tablet PO SCH (19:56)
[2020-11-26] MEDS: enoxaparin 40mg/0.4ml syringe SUBCUT SCH (20:01)
--- NOTE | 2020-11-26 20:14 | NUR ---
colostomy with flatus small amount soft stool and gas expressed from the bag. abd dressing removed noted old dried drainage and new non-adherent dressing applied
[2020-11-26 22:00] VITALS: BP 185/75
--- NOTE | 2020-11-27 00:57 | NUR ---
PT RESTING EYES CLOSED WITHOUT CHANGES AT THIS TIME.
[2020-11-27] MEDS: morphine 2 MG/ML inj. syringe IV PRN (01:38)
[2020-11-27 02:00] VITALS: BP 157/82
[2020-11-27] MEDS: potassium Cl 20mEq in NS 1,000 ML IV SCH (02:07)
--- NOTE | 2020-11-27 05:49 | NUR ---
SKIN CARE DONE GOWN CHANGED 3 HARD FORMED BALLS MED SIZED FROM COLOSTOMY OUT AND LIEN CHANGED.
--- NOTE | 2020-11-27 06:10 | NUR ---
Patient in room U 3025. I have received report from KALEN HOFFMAN and had the opportunity to ask questions and assume patient care. Addendum: 11/27/20 at 0611 by Cortney Pimentel RN Amended: Links added.
[2020-11-27 06:25] LABS: PARTIAL THROMBOPLASTIN TIME 23 SECONDS (22-32)
[2020-11-27 06:45] LABS: PHOSPHORUS 2.3 MG/DL (2.3-4.5)
[2020-11-27 07:00] VITALS: BP 148/84
[2020-11-27 08:16] LABS: BASOPHILS % (AUTO) 0.3 % (0-1); EOSINOPHILS # (AUTO) 0.2 X10'3 (0-0.9); EOSINOPHILS % (AUTO) 2.1 % (0-6); HEMATOCRIT 36.8 % (42.0-52.0); HEMOGLOBIN 12.2 g/dl (14.0-17.9); LYMPHOCYTES # (AUTO) 1.2 X10'3 (1.1-4.8); LYMPHOCYTES % (AUTO) 10.5 % (21-51); MEAN CORPUSCULAR HEMOGLOBIN 30.8 PG (27.0-31.0); MEAN CORPUSCULAR VOLUME 93.2 FL (78-98); MEAN PLATELET VOLUME 7.2 FL (7.4-10.4); MONOCYTES # (AUTO) 0.7 X10'3 (0-0.9); MONOCYTES % (AUTO) 6.1 % (2-12); NEUTROPHILS # (AUTO) 8.9 X10'3 (1.8-7.7); PLATELET COUNT 238 X10'3 (140-440); RED BLOOD COUNT 3.95 X10'6 (4.70-6.10); RED CELL DISTRIBUTION WIDTH 13.3 % (11.5-14.5)
[2020-11-27 08:21] LABS: ALANINE AMINOTRANSFERASE 83 U/L (12-78); ALBUMIN 2.4 G/DL (3.4-5.0); ALBUMIN/GLOBULIN RATIO 0.7 (1.1-1.5); ALKALINE PHOSPHATASE 88 IU/L (46-116); ANION GAP 12 (8-16); ASPARTATE AMINO TRANSFERASE 43 U/L (10-37); BILIRUBIN,TOTAL 0.6 MG/DL (0.1-1.0); BLOOD UREA NITROGEN 6 MG/DL (7-18); BUN/CREATININE RATIO 11.8 (5.4-32.0); CALCIUM 7.9 MG/DL (8.5-10.1); CHLORIDE 104 MMOL/L (99-107); CREATININE 0.51 MG/DL (0.60-1.10); GLUCOSE 95 MG/DL (70-104); POTASSIUM 3.9 MMOL/L (3.5-5.1); SODIUM 139 MMOL/L (135-145); TOTAL CARBON DIOXIDE 23.1 MMOL/L (24-32); TOTAL PROTEIN 5.8 G/DL (6.4-8.2); eGFR > 90 ML/MIN
[2020-11-27] MEDS: aripiprazole 5mg tablet PO SCH (09:59)
[2020-11-27] MEDS: busPIRone 5mg tablet PO SCH (09:59)
[2020-11-27] MEDS: lisinopril 20mg tablet PO SCH (10:00)
[2020-11-27] MEDS: magnesium hydroxide 30ml (MOM) UD suspension PO SCH (10:01)
[2020-11-27] MEDS: tamsulosin 0.4mg capsule PO SCH (10:01)
[2020-11-27] MEDS: enoxaparin 40mg/0.4ml syringe SUBCUT SCH (10:01)
[2020-11-27] MEDS: lactobacillus rhamnosus 10,000 MMU CELLS/CAPSULE PO SCH (10:01)
[2020-11-27] MEDS ORDERED: furosemide 40mg/4ml inj IV ONE (10:50)
--- NOTE | 2020-11-27 10:55 | NUR ---
I received orders at bedside to stop IV fluids and to give 40 mg IV lasix once now.
[2020-11-27 11:00] VITALS: BP 150/87
--- NOTE | 2020-11-27 12:50 | NUR ---
Called report to Yumiko Calderon at
--- NOTE | 2020-11-27 13:57 | NUR ---
Patient transferred to [place].Stable at time of transfer
== END 2020-11-27 13:13 | DRG 337 ==
LOC: ER 00:45 → ED HOLD 07:26 → ICU 2S 14:34 → PCU 3S 11-19 18:01
PROVIDERS: ADMIT Family Medicine; ATTEND Family Medicine
PROC: 0DNU0ZZ Release Omentum, Open Approach (ICD-10-PCS; 2020-11-18)
PROC: 0D9670Z Drainage of Stomach with Drainage Device, Via Natural or Artificial Opening (ICD-10-PCS; 2020-11-18)
PROC: BW211ZZ Computerized Tomography (CT Scan) of Abdomen and Pelvis using Low Osmolar Contrast (ICD-10-PCS; 2020-11-18)
PROC: 0DN80ZZ Release Small Intestine, Open Approach (ICD-10-PCS; principal; 2020-11-18 11:25)
DX: K56.50 Intestinal adhesions [bands], unspecified as to partial versus complete obstruction (principal); E86.0 Dehydration; Z96.653 Presence of artificial knee joint, bilateral; G89.29 Other chronic pain; M54.9 Dorsalgia, unspecified; I10 Essential (primary) hypertension; I25.10 Atherosclerotic heart disease of native coronary artery without angina pectoris; N40.0 Benign prostatic hyperplasia without lower urinary tract symptoms; Z20.822 Contact with and (suspected) exposure to COVID-19; Z90.49 Acquired absence of other specified parts of digestive tract; Z93.3 Colostomy status
CPT/HCPCS: 36415; 36600; 71045; 74018; 74177; 80048; 80053; 82803; 82948; 83605; 83690; 83735; 83874; 84100; 84132; 84484; 85018; 85025; 85610; 85730; 86885; 86900; 86901; 87081; 87635; 93005; 94002; 94003; 94760; 94799; 96374; 97110; 97116; 97162; 97530; 99285; A4618; A6253; A7000; C1758; C9113; C9290; C9803; G0378; J0360; J0694; J0780; J1100; J1200; J1650; J1940; J2001; J2060; J2250; J2270; J2370; J2405; J2543; J2704; J3010; J3480; J3490; J7030; J7040; J7120; P9045; Q9967

== ENCOUNTER 2020-12-26 01:48 | Emergency (ER) | payer MEDICARE, BC ==
[~2020-12-26] VITALS: Ht 180.3 cm; Wt 118.2 kg
[~2020-12-26 01:48] MED LIST: ARIP5TAB14 PO; BUSP10TA3 PO; CITA20TA28 PO; FLO0.4C PO; HYDR-3972 PO; LISI40TA13 PO; NORT75CA PO
[2020-12-26] MEDS ORDERED: apixaban 5mg tablet PO ONE (01:55)
[2020-12-26] MEDS ORDERED: APIX5TAB3 PO (01:59)
[2020-12-26 02:06] VITALS: BP 125/63
== END 2020-12-26 02:15 ==
LOC: ER 01:49
DX: I82.432 Acute embolism and thrombosis of left popliteal vein (principal); I82.411 Acute embolism and thrombosis of right femoral vein; I10 Essential (primary) hypertension; G89.29 Other chronic pain; Z90.49 Acquired absence of other specified parts of digestive tract; Z98.890 Other specified postprocedural states; Z79.899 Other long term (current) drug therapy
CPT/HCPCS: 99283